=== PATIENT | male | born 1980 | race Caucasian/White ===

== ENCOUNTER 2018-08-01 13:14 | Emergency (ER) | payer BC ==
[~2018-08-01] VITALS: Ht 177.8 cm; Wt 99.8 kg
--- NOTE | 2018-08-01 13:34 | NUR ---
PT AMBULATES TO BED 3 WITH LIMP
[2018-08-01 13:35] VITALS: BP 124/79
--- NOTE | 2018-08-01 14:03 | NUR ---
Patient being evaluated by physician at bedside.
[2018-08-01] MEDS ORDERED: DEXAMETHASONE 10 MG/ML VIAL IM ONE (14:15)
[2018-08-01] MEDS ORDERED: MORPHINE SULFATE 4 MG/ML SYR IM ONE ×2 (14:15→15:50)
--- NOTE | 2018-08-01 14:40 | NUR ---
37/M BIB , C/O LEFT LEG PAIN , PAIN ORIGINATES IN HIP AND RADIATES DOWN ENTIRE LEFT LEG. PATIENT STATES THAT PAIN BEGAN 1.5 MONTHS AGO WAS SEEN HER. WAS PRESCRIBED TRAMADOL AND DICOFENAC, HAS HAD NO RELIEF. PAIN HAS WORSENED X 3 DAYS. DENIES ANY INJURY OR TRUAMA, N/V/D, FEVERS, OR CHILLS. PATIENT REPORTS NOT BEING ABLE TO SLEEP, SITTING OR LAYING WORSENS PAIN. AOX4, STEADY GAIT, SAFETY PRECAUTIONS IN PLACE.
[2018-08-01 16:52] VITALS: BP 138/78
--- NOTE | 2018-08-01 16:52 | NUR ---
Patient discharged with v/s stable. Written and verbal after care instructions given and explained. Patient alert, oriented and verbalized understanding of instructions. Ambulatory with steady gait. All questions addressed prior to discharge. ID band removed. Patient advised to follow up with PMD. Rx of medrol dosepak/robaxin given. Patient educated on indication of medication including possible reaction and side effects. Opportunity to ask questions provided and answered.
== END 2018-08-01 16:52 | disposition home or self-care (01) ==
LOC: MED 13:14
DX: M54.40 Lumbago with sciatica, unspecified side (principal)
CPT/HCPCS: 96372; 99283; J1100; J2270